=== PATIENT | female | born 1990 | race Two or more races ===

== ENCOUNTER 2018-12-14 21:03 | Observation (INO) | payer SELFPAY ==
[~2018-12-14] VITALS: Ht 154.9 cm; Wt 51.8 kg
[2018-12-14 21:38] VITALS: BP 104/63
[2018-12-14 21:49] LABS: BILIRUBIN,URINE NEGATIVE (NEG); CLARITY,URINE CLEAR; COLOR,URINE YELLOW; NITRITE,URINE NEGATIVE (NEG); PROTEIN,URINE NEGATIVE (NEG-TRACE); UROBILINOGEN,URINE 0.2 mg/dL (0.2 mg/dL)
[2018-12-14 21:56] LABS: RBC,URINE 0 /HPF (0-2)
[2018-12-14 21:57] LABS: BACTERIA,URINE FEW /HPF (0-FEW); SQUAMOUS EPITHELIAL CELL,UR MOD /LPF
[2018-12-14 21:58] LABS: BARBITURATES NEG (NEG); BENZODIAZEPINES NEG (NEG); CANNABINOIDS NEG (NEG); COCAINE NEG (NEG); METHADONE NEG (NEG); OPIATES NEG (NEG); PHENCYCLIDINE NEG (NEG)
[2018-12-14 21:59] LABS: AMPHETAMINE/METHAMPHETAMINE NEG (NEG)
[2018-12-14] MEDS ORDERED: IV RINGERS,LACTATED 1000ML 1,000 ML IV SCH (22:00)
[2018-12-14 23:05] VITALS: BP 106/63
[2018-12-14] MEDS ORDERED: MAG HYDROX/ALUMINUM HYD/SIMETH 30 ML ORAL.SUSP PO PRN (23:15)
[2018-12-14] MEDS ORDERED: ACETAMINOPHEN 325 MG TABLET. PO PRN (23:15)
--- NOTE | 2018-12-14 23:25 | RAD ---
Indication:PT HAS BRIGHT RED VAG BLEEDING, TECHNIQUE: Ultrasound OB limited. COMPARISON:None FINDINGS: Single intrauterine seen in breech presentation. Central airways anterior in location. Heart rate 158 bpm. Biparietal diameter measures 5.2 cm corresponding to gestation age of 22 weeks 0 days. Head circumference measures 20.8 cm corresponding to gestation age of 22 weeks 2 days. Abdominal circumference measures 17.60 cm corresponding to gestation age of 22 weeks 4 days. Femoral length measures 3.88 cm corresponding to gestation age of 22 weeks 3 days. Cervix is closed and measures 3.3 cm in length. The placenta is approximately 3.7 cm away from the cervical os. Amniotic fluid index of 2.4 cm. Estimated weight of 504 g +/- 75 g. IMPRESSION: 1. Single live viable intrauterine with estimated gestation age of 22 weeks 2 days and due date of 04/17/2019. 2. Low amniotic fluid. Electronically signed by: Arvin Kincaid DO (12/14/2018 11:21 PM) [facility]
[2018-12-14 23:28] LABS: BASO % 1 % (0-3); EOS # 0.2 x10^3/uL (0.0-0.7); EOS % 2 % (0-3); HEMATOCRIT 36.1 % (36.0-47.0); HEMOGLOBIN 12.8 g/dL (12.0-15.5); LYMPH # 1.9 x10^3/uL (1.0-4.8); LYMPH % 20 % (24-48); MEAN CORPUSCULAR HEMOGLOBIN 30 pg (25-35); MEAN CORPUSCULAR HGB CONC 35 g/dL (31-37); MEAN CORPUSCULAR VOLUME 86 fL (79-100); MONO # 0.7 x10^3/uL (0.0-1.1); MONO % 8 % (0-9); NEUT # 6.8 x10^3uL (1.8-7.7); NEUT % 70 % (31-73); PLATELET COUNT 241 x10^3/uL (140-400); RED CELL DISTRIBUTION WIDTH 12.8 % (11.5-14.5); WHITE BLOOD COUNT 9.7 x10^3/uL (4.0-11.0)
[2018-12-15] MEDS ORDERED: IV RINGERS,LACTATED 1000ML 1,000 ML IV SCH (09:31)
[2018-12-15] MEDS ORDERED: AZITHROMYCIN 250 MG in IV NORMAL SALINE 250ML 250 ML IV ONE (09:45)
[2018-12-15] MEDS ORDERED: MAGNESIUM SULFATE 4GM 100 ML IV ONE (09:45)
[2018-12-15] MEDS ORDERED: IBUPROFEN 400 MG TABLET. PO PRN (09:45)
[2018-12-15] MEDS ORDERED: 0.9 % SODIUM CHLORIDE 10 ML DISP.SYRIN. IV PRN (09:45)
[2018-12-15] MEDS ORDERED: OXYTOCIN 30 UNIT/500 ML PREMIX 500 ML IV PRN (09:45)
[2018-12-15] MEDS ORDERED: BETAMET ACET&NA PHOS 30 MG/5 ML VIAL. IM ONE (09:45)
[2018-12-15] MEDS ORDERED: AMPICILLIN SODIUM 2 GM in IV NORMAL SALINE 100ML 100 ML IV ONE (09:45)
--- NOTE | 2018-12-15 09:50 | PDOC1 ---
OB - History Hx of Present Care: Limited Care Ultrasounds: Abnormal US findings (BENITO 2.4 cm), Other (cervix closed and 3.3 cm ) Medical Complications: None Past Family/Social History * Past Medical, Surgical, Family and Obstetric Histories reviewed from chart. Blood Type: Unknown Rubella: Unknown RPR/VDRL: Unknown GBS Status: Unknown HBsAG: Unknown OB - Chief Complaint & HPI Date of Admission: Date of Admission: Dec 14, 2018 at 21:03 Chief Complaint/History : 2 Para: 1 EDC: April 17, 2019 Reason for admission: rupture of membranes, vaginal bleeding Admission Nurse Assessment Rev: Yes OB - Admission Exam Physical Exam Vitals: VS - Last 72 Hours, by Label Date Time Temp Pulse Resp B/P (MAP) Pulse Ox O2 Delivery O2 Flow Rate FiO2 12/14/18 23:05 97.7 67 18 106/63 (77) Room Air 97.7 12/14/18 21:38 71 104/63 (77) 12/14/18 21:29 97.9 18 Room Air 97.9 Heart: Regular Rate Lungs: Clear, Equal Abdomen: Gravid Extremities: Normal Pulses, No tenderness or swelling Reflexes: Normal Cervical Dilatation: None Heart Rate: Normal Assessment/Plan Assessment/Plan 22wks 2 days PPROM Vag bleeding Transfer to discussed with Dr Betzy Hernandez PPROM Protocol Mg, steroids, Abs ANUP ROMERO MD Dec 15, 2018 09:50
[2018-12-15 12:36] LABS: BASO % 0 % (0-3); EOS # 0.2 x10^3/uL (0.0-0.7); EOS % 2 % (0-3); HEMOGLOBIN 12.5 g/dL (12.0-15.5); LYMPH # 1.5 x10^3/uL (1.0-4.8); LYMPH % 17 % (24-48); MEAN CORPUSCULAR HEMOGLOBIN 30 pg (25-35); MEAN CORPUSCULAR HGB CONC 35 g/dL (31-37); MEAN CORPUSCULAR VOLUME 86 fL (79-100); MONO # 0.7 x10^3/uL (0.0-1.1); MONO % 8 % (0-9); NEUT # 6.5 x10^3uL (1.8-7.7); NEUT % 73 % (31-73); PLATELET COUNT 237 x10^3/uL (140-400); RED BLOOD COUNT 4.18 x10^6/uL (3.50-5.40); RED CELL DISTRIBUTION WIDTH 12.5 % (11.5-14.5); WHITE BLOOD COUNT 8.8 x10^3/uL (4.0-11.0)
[2018-12-15] MEDS ORDERED: MAGNESIUM SULFATE 2GM 50 ML IV ONE (14:00)
== END 2018-12-15 11:15 | disposition short-term general hospital (02) ==
LOC: EDBD 21:03 → 3 SO LND 21:03
PROVIDERS: ADMIT Obstetrics & Gynecology; ATTEND Obstetrics & Gynecology
DX: O46.92 Antepartum hemorrhage, unspecified, second trimester (principal); O42.912 Preterm premature rupture of membranes, unspecified as to length of time between rupture and onset of labor, second trimester; Z3A.22 22 weeks gestation of pregnancy
CPT/HCPCS: 36415; 76815; 80307; 81001; 85025; 86592; 86703; 86850; 86900; 86901; 87086; 87340; 96365; 96366; 96368; 96372; G0378; G0379; J0290; J0456; J0702; J3475; J7050; 86762; J7120; J7030